=== PATIENT | female | born 1990 | race Caucasian/White ===

== ENCOUNTER 2017-08-30 06:22 | Emergency (ER) | payer OTHER ==
[~2017-08-30] VITALS: Ht 167.6 cm; Wt 77.1 kg
--- NOTE | ~2017-08-30 | EKG ---
[place], [place] ELECTROCARDIOGRAM REPORT NAME: FLOYD ALEXANDRA UNIT #: [id number] ROOM: DOCTOR: CLAIRE CHILDERS MD BIRTHDATE: [birth year] DOS: 08/30/2017 TIME: 0656 hours. Normal sinus rhythm at 76 beats per minute. The tracing is normal. No previous tracing is available for comparison. CLAIRE CHILDERS MD CM:EKGRPT:ELECTROCARDIOGRAM REPORT [id number] CLAIRE CHILDERS MD
[~2017-08-30 06:22] MED LIST: AMOXIL500 MG PO; CIPRODEX 0.3%-7.5 M1 OT; COLACE100 MG PO; IRON325 M1 PO; MOTRIN800 MG PO; PERCOCET 325 MG1 TA2 PO; PRENATAL1 TA1 PO; TYLENOL W/CODEI1 TA2 PO
[2017-08-30 07:03] LABS: BASO # 0.1 10*3/uL (0.0-0.1); BASO % 0.9 % (0.0-1.0); EOS # 0.2 10*3/uL (0.0-0.4); EOS % 2.1 % (1.0-4.0); HEMATOCRIT 38.5 % (37.0-47.0); HEMOGLOBIN 12.9 g/dl (12.0-16.0); LYMPH # 3.9 10*3/uL (1.3-4.4); LYMPH % 48.9 % (27.0-41.0); MEAN CELL VOLUME 90.2 fl (81.0-99.0); MEAN CORPUSCULAR HGB 30.2 pg (27.0-31.0); MEAN CORPUSCULAR HGB CONC 33.5 g/dl (33.0-37.0); MEAN PLATELET VOLUME 10.8 fl (9.6-12.3); MONO # 0.6 10*3/uL (0.1-1.0); MONO % 6.9 % (3.0-9.0); NEUT # 3.3 10*3/uL (2.3-7.9); PLATELET COUNT AUTOMATED 261 10*3/uL (130-400); RED BLOOD COUNT 4.27 10*6/uL (4.10-5.10); RED CELL DISTRI WIDTH 11.9 % (0-14.5)
[2017-08-30 07:07] LABS: BILIRUBIN NEGATIVE (NEGATIVE); BLOOD NEGATIVE (NEGATIVE); CLARITY CLEAR (CLEAR); COLOR YELLOW (YELLOW); GLUCOSE NEGATIVE (NEGATIVE); KETONE NEGATIVE (NEGATIVE); LEUKO ESTERASE NEGATIVE (NEGATIVE); NITRITE NEGATIVE (NEGATIVE); SPECIFIC GRAVITY <= 1.005 (1.005-1.030); UROBILINOGEN 0.2 E.U./dl (0.2-1.0)
[2017-08-30 07:15] LABS: BACTERIA 2+; RBC 0-2 rbc/hpf (0-2); WBC 0-2 wbc/hpf (0-5)
[2017-08-30 07:38] LABS: ALKALINE PHOSPHATASE 59 U/L (45-117); BUN 9 mg/dl (7-24); CHLORIDE 103 mmol/L (98-107); CREATININE 0.79 mg/dL (0.55-1.02); LIPASE 303 U/L (73-393); POTASSIUM 3.6 mmol/L (3.5-5.1); SGOT/AST 13 IU/L (3-35); SGPT/ALT 20 U/L (12-78); SODIUM 141 mmol/L (136-145); TOTAL PROTEIN 7.7 gm/dL (6.4-8.2)
[2017-08-30 07:43] LABS: BETA-HCG, QUANT < 1.0 mIU/mL (1-3)
[2017-08-30] MEDS ORDERED: PROTONIX40 MG PO (08:34)
== END 2017-08-30 08:47 | disposition home or self-care (01) ==
LOC: ED 06:22
PROVIDERS: Emergency Medicine Emergency Medical Services
DX: K29.00 Acute gastritis without bleeding (principal); K59.00 Constipation, unspecified; Z79.899 Other long term (current) drug therapy

== ENCOUNTER 2017-10-21 13:33 | Emergency (ER) | payer OTHER ==
[~2017-10-21] VITALS: Ht 167.6 cm; Wt 77.1 kg
[~2017-10-21 13:33] MED LIST changes: +PROTONIX40 MG PO
[2017-10-21] MEDS ORDERED: IBUPROFEN600 MG PO (14:15)
[2017-10-21] MEDS ORDERED: SEPTDS PO (14:15)
== END 2017-10-21 14:34 | disposition home or self-care (01) ==
LOC: ED 13:33
DX: L03.012 Cellulitis of left finger (principal); Z79.899 Other long term (current) drug therapy

== ENCOUNTER 2018-10-23 12:46 | Emergency (ER) | payer OTHER ==
[~2018-10-23] VITALS: Ht 167.6 cm; Wt 72.6 kg
[~2018-10-23 12:46] MED LIST changes: +IBUPROFEN600 MG PO; +SEPTDS PO
[2018-10-23] MEDS ORDERED: GOOD NEIGHBOR M25 M1 PO (13:38)
== END 2018-10-23 13:52 | disposition home or self-care (01) ==
LOC: ED 12:46
DX: H83.03 Labyrinthitis, bilateral (principal)